=== PATIENT | male | born 1985 ===

== ENCOUNTER 2020-02-20 15:56 | Emergency (ER) | payer MEDICAID, OTHER ==
[~2020-02-20] VITALS: Ht 180.3 cm; Wt 110.0 kg
[2020-02-20 16:02] VITALS: BP 126/86
--- NOTE | 2020-02-20 16:28 | NUR ---
PT RECLINED IN BED, RESPIRATIONS EVEN AND UNLABORED ON RA. NAD NOTED AT THIS TIME. PT REPORTS JUMPING OVER FENCE AND "TWISTING" KNEE UPON LANDING, PAIN TO RT KNEE. SWELLING EVIDENT. PT REPORTS INABILITY TO BEAR WEIGHT. AWAITING FURTHER ORDERS FROM .
--- NOTE | 2020-02-20 17:14 | NUR ---
PT CHART UP FOR RECHECK.
--- NOTE | 2020-02-20 17:29 | NUR ---
NICKI GARCIA IN TO REASSESS PT AND DISCUSS PLAN OF CARE.
[2020-02-20] MEDS ORDERED: OXYcodone/APAP 10/325MG TABLET ONE (18:58)
[2020-02-20] MEDS ORDERED: OXYcodone/APAP 10/325MG TABLET PO ONE (19:00)
--- NOTE | 2020-02-20 19:04 | NUR ---
Latrice guerrero in ED - 02/20/20 at 1908 by ZARIA Patient given discharge instructions and they have confirmed that they understand the instructions. Patient wheeled to steve.
--- NOTE | 2020-02-20 19:08 | NUR ---
PT MEDICATED PER EMAR. PT SLIGHTLY TREMULOUS WHEN TAKING PILL. PT STATES HAS NOT EATEN TODAY. PT PROVIDED W/ SNACKS AND DRINKS WILL OBS FOR 20 MINUTES THEN DC.
--- NOTE | 2020-02-20 19:26 | NUR ---
PT REPORTS SYMPTOMS IMPROVED AFTER EATING. VERBALIZED UNDERSTANDING OF DC INSTRUCTIONS. WHEELED TO ED LOBBY AT THIS TIME.
== END 2020-02-20 19:29 | disposition home or self-care (01) ==
LOC: ED 19:00
DX: S82.144A Nondisplaced bicondylar fracture of right tibia, initial encounter for closed fracture (principal); X50.0XXA Overexertion from strenuous movement or load, initial encounter; Y93.89 Activity, other specified; Y92.830 Public park as the place of occurrence of the external cause; Y99.8 Other external cause status
CPT/HCPCS: 99284